=== PATIENT | male | born 1990 | race Caucasian/White ===

== ENCOUNTER 2017-06-14 14:32 | Emergency (ER) | payer MEDICAID ==
[~2017-06-14] VITALS: Ht 167.6 cm; Wt 81.8 kg
[2017-06-14] MEDS ORDERED: BUTATAB6 PO (14:51)
--- NOTE | 2017-06-14 16:46 | REP ---
Clinical: Trauma. Technique: AP, lateral, bilateral oblique and sunrise views right knee. Findings: The osseous structures and joint spaces are intact and normal. There is no evidence for acute fracture or dislocation. No joint effusion is appreciated. Surrounding soft tissues are unremarkable. No subcutaneous emphysema or radiodense foreign body. Impression: Normal examination. No acute fracture or dislocation. Signed by Moiz Zee MD 06/14/2017 04:37 P
[2017-06-14 17:30] VITALS: BP 115/65
[2017-08-13] MEDS ORDERED: NO MEDICATIONS (08:32)
== END 2017-06-14 17:32 | disposition home or self-care (01) ==
LOC: M ED 14:32
DX: M23.91 Unspecified internal derangement of right knee (principal); Z86.69 Personal history of other diseases of the nervous system and sense organs

== ENCOUNTER 2017-06-30 17:40 | Emergency (ER) | payer MEDICAID, OTHER, SELFPAY ==
[~2017-06-30] VITALS: Ht 167.6 cm; Wt 81.8 kg
[~2017-06-30 17:40] MED LIST: BUTATAB6 PO
[2017-06-30 20:31] LABS: BASO % 0.5 % (0.0-1.0); EOS % 0.5 % (0.0-3.0); IMMATURE GRANULOCYTE % 0.4 % (0-0); LYMPH # 1.6 10^3/uL (1.5-6.5); LYMPH % 19.4 % (24.0-44.0); MEAN CORPUSCULAR HGB CONC 35.5 g/dl (32.0-36.5); MEAN CORPUSCULAR VOLUME 87.5 fl (80.0-96.0); MONO # 0.5 10^3/uL (0.0-0.8); MONO % 5.7 % (0.0-5.0); NEUTROPHILS # 6.1 10^3/uL (1.8-7.7); NEUTROPHILS % 73.5 % (36.0-66.0); PLATELET COUNT, AUTOMATED 183 10^3/uL (150-450); RED CELL DISTRIBUTION WIDTH 12.2 % (11.5-14.5); WHITE BLOOD COUNT 8.3 10^3/uL (4.0-10.0)
[2017-06-30 20:45] LABS: INR 1.06
[2017-06-30 20:51] LABS: ANION GAP 8 MEQ/L (8-16); BLOOD UREA NITROGEN 9 MG/DL (7-18); CALCIUM LEVEL 8.2 MG/DL (8.5-10.1); CARBON DIOXIDE LEVEL 26 MEQ/L (21-32); CHLORIDE LEVEL 107 MEQ/L (98-107); CREATININE FOR GFR 0.75 MG/DL (0.70-1.30); GLOMERULAR FILTRATION RATE > 60.0 (>60); GLUCOSE, FASTING 87 MG/DL (70-105); POTASSIUM SERUM 3.7 MEQ/L (3.5-5.1); SODIUM LEVEL 141 MEQ/L (136-145)
[2017-06-30 21:49] VITALS: BP 132/84
[2017-08-13] MEDS ORDERED: NO MEDICATIONS (08:32)
== END 2017-06-30 21:58 | disposition home or self-care (01) ==
LOC: M ED 17:40
DX: K92.2 Gastrointestinal hemorrhage, unspecified (principal)

== ENCOUNTER → 2017-07-17 | Outpatient (CLI) | payer OTHER ==
[~2017-07-17] MED LIST changes: +NO MEDICATIONS
--- NOTE | 2017-07-17 18:59 | REP ---
Clinical: Trauma. Technique: Frontal view of the chest with multiple views of the left hemithorax. Findings: Frontal view of the chest demonstrates no acute cardiopulmonary process. Multiple views of the left hemithorax demonstrates no obvious acute rib fracture or pathology. Impression: Normal left rib series Signed by Moiz Zee MD 07/17/2017 06:50 P
== END ==
LOC: M WUC 17:29
PROVIDERS: ATTEND Physician Assistant
DX: S20.219A Contusion of unspecified front wall of thorax, initial encounter (principal); X58.XXXA Exposure to other specified factors, initial encounter; Y92.9 Unspecified place or not applicable; Y93.9 Activity, unspecified

== ENCOUNTER 2017-08-21 06:57 | Day surgery (SDC) | payer OTHER ==
[~2017-08-21] VITALS: Ht 167.6 cm; Wt 77.0 kg
[2017-08-21] MEDS ORDERED: NS 1,000 ML IV SCH (07:45)
--- NOTE | 2017-08-21 08:30 | ROOR ---
Patient Name: Charli Renee Procedure Date: 08/21/2017 8:04 AM Date of : 1990 Age: 27 Room: [facility] Gender: Male Note Status: Finalized Procedure: Colonoscopy Indications: Rectal bleeding Providers: Shukri Moran Jr, MD Referring MD: LYNDON BRENNAN MD Requesting Provider: Medicines: Propofol per Anesthesia Complications: No immediate complications. Procedure: Pre-Anesthesia Assessment: - Prior to the procedure, a History and Physical was performed, and patient medications and allergies were reviewed. The patient is competent. The risks and benefits of the procedure and the sedation options and risks were discussed with the patient. All questions were answered and informed consent was obtained. Patient identification and proposed procedure were verified by the physician and the nurse in the pre-procedure area and in the procedure room. Mental Status Examination: alert and oriented. Airway Examination: normal oropharyngeal airway and neck mobility. Respiratory Examination: clear to auscultation. CV Examination: normal. ASA Grade Assessment: II - A patient with mild systemic disease. After reviewing the risks and benefits, the patient was deemed in satisfactory condition to undergo the procedure. The anesthesia plan was to use moderate sedation / analgesia (conscious sedation). Immediately prior to administration of medications, the patient was re-assessed for adequacy to receive sedatives. The heart rate, respiratory rate, oxygen saturations, blood pressure, adequacy of pulmonary ventilation, and response to care were monitored throughout the procedure. The physical status of the patient was re-assessed after the procedure. The Colonoscope was introduced through the anus and advanced to the cecum, identified by appendiceal orifice and ileocecal valve. The colonoscopy was performed without difficulty. The patient tolerated the procedure well. The quality of the bowel preparation was adequate and good. Findings: The recto-sigmoid colon, sigmoid colon, descending colon, transverse colon, ascending colon, cecum, appendiceal orifice, ileocecal valve and ileum appeared normal. An area of mildly congested mucosa was found in the rectum. This was biopsied with a cold jumbo forceps for histology. Impression: - The recto-sigmoid colon, sigmoid colon, descending colon, transverse colon, ascending colon, cecum, appendiceal orifice, ileocecal valve and terminal ileum are normal. - Congested mucosa in the rectum. Biopsied. Recommendation: - Discharge patient to home (ambulatory). - Repeat colonoscopy at age 50 for screening purposes. Shukri Moran MD Shukri Moran Jr, MD 08/21/2017 8:29:55 AM This report has been signed electronically. Number of Addenda: 0 Note Initiated On: 08/21/2017 8:04 AM Estimated Blood Loss: Estimated blood loss: none.
[2017-08-21] MEDS ORDERED: LIDOCAINE 2% INJ 100 MG/5 ML SDV (FOR ANES.) As Ordered ONE (08:32)
[2017-08-21] MEDS ORDERED: PROPOFOL 200 MG/20 ML VIAL As Ordered ONE (08:32)
[2017-08-21 08:50] VITALS: BP 127/75
== END 2017-08-21 08:51 | disposition home or self-care (01) ==
LOC: M OPP 06:57
PROVIDERS: ATTEND Surgery
DX: K62.5 Hemorrhage of anus and rectum (principal); K62.89 Other specified diseases of anus and rectum; Q85.00 Neurofibromatosis, unspecified

== ENCOUNTER 2017-09-04 17:38 | Emergency (ER) | payer OTHER ==
[~2017-09-04] VITALS: Ht 167.6 cm; Wt 76.4 kg
--- NOTE | 2017-09-04 21:40 | REPUSA ---
CT of the head Clinical history: Paresthesias. Technique: Multiple axial CT images were obtained through the head without administration of contrast . Findings: The ventricles and sulci are symmetric bilaterally. There is no evidence of acute hemorrhag e or infarct. There is no midline shift, mass effect, or extra-axial fluid collection. The osseous st ructures are unremarkable. The visualized paranasal sinuses and mastoid air cells are clear. Left lat eral superficial soft tissue swelling is noted. Impression: No acute intracranial hemorrhage or infarct. Superficial soft tissue swelling in the left lateral aspect.
[2017-09-04 22:54] VITALS: BP 134/79
== END 2017-09-04 22:56 | disposition home or self-care (01) ==
LOC: M ED 17:38
DX: R20.2 Paresthesia of skin (principal); Q85.00 Neurofibromatosis, unspecified

== ENCOUNTER → 2017-09-10 | Outpatient (REF) | payer OTHER | LOC: M LABNEURO 14:57 | PROVIDERS: ATTEND Psychiatry & Neurology Neurology | DX: Z13.1 Encounter for screening for diabetes mellitus (principal); Z13.29 Encounter for screening for other suspected endocrine disorder; D68.59 Other primary thrombophilia; G45.9 Transient cerebral ischemic attack, unspecified; Z13.6 Encounter for screening for cardiovascular disorders ==

== ENCOUNTER 2017-12-09 12:57 | Day surgery (SDC) | payer OTHER ==
[2017-12-09] MEDS ORDERED: LIDOCAINE VISCOUS 2% SOLN 15ML UDC As Ordered (13:42)
[2017-12-09] MEDS ORDERED: CETACAINE SPRAY 5GM As Ordered (13:42)
[2017-12-09] MEDS ORDERED: MIDAZOLAM INJ 2 MG/2 ML VIAL (J2250) As Ordered ×4 (13:47→14:09)
[2017-12-09] MEDS: LIDOCAINE VISCOUS 2% SOLN 15ML UDC PO (14:21)
[2017-12-09] MEDS: MIDAZOLAM INJ 2 MG/2 ML VIAL (J2250) IV ×3 (14:22→14:27)
== END 2017-12-09 15:18 | disposition home or self-care (01) ==
LOC: M OPP 15:18
DX: G45.9 Transient cerebral ischemic attack, unspecified (principal); E66.3 Overweight; Z68.29 Body mass index [BMI] 29.0-29.9, adult
CPT/HCPCS: J2250

== ENCOUNTER 2021-06-20 21:43 | Emergency (ER) | payer OTHER ==
[~2021-06-20] VITALS: Ht 167.6 cm; Wt 87.0 kg
[~2021-06-20 21:43] MED LIST changes: +BUTA-199 PO; -BUTATAB6 PO
[2021-06-20 22:42] LABS: BASO % 0.3 % (0.0-1.0); EOS % 0.4 % (0.0-3.0); HEMATOCRIT 45.3 % (42.0-52.0); HEMOGLOBIN 16.2 g/dl (13.5-17.5); LYMPH # 0.9 10^3/uL (1.5-5.0); LYMPH % 8.3 % (24.0-44.0); MEAN CORPUSCULAR HEMOGLOBIN 31.9 pg (27.0-33.0); MEAN CORPUSCULAR HGB CONC 35.8 g/dl (32.0-36.5); MEAN CORPUSCULAR VOLUME 89.2 fl (80.0-96.0); NEUTROPHILS % 81.6 % (36.0-66.0); PLATELET COUNT, AUTOMATED 148 10^3/uL (150-450); RED BLOOD COUNT 5.08 10^6/uL (4.30-6.10)
[2021-06-20 23:08] LABS: BLOOD UREA NITROGEN 12 MG/DL (7-18); CALCIUM LEVEL 8.5 MG/DL (8.5-10.1); CARBON DIOXIDE LEVEL 28 MEQ/L (21-32); CHLORIDE LEVEL 107 MEQ/L (98-107); CREATININE FOR GFR 0.68 MG/DL (0.70-1.30); GLOMERULAR FILTRATION RATE > 60.0 (>60); GLUCOSE, FASTING 95 MG/DL (70-100); POTASSIUM SERUM 4.4 MEQ/L (3.5-5.1); SODIUM LEVEL 139 MEQ/L (136-145)
[2021-06-20] MEDS ORDERED: ISOVUE-370 76% 100ML VIAL As Ordered ONE (23:09)
--- NOTE | 2021-06-21 00:18 | REPVR ---
PROCEDURE INFORMATION: Exam: CT Maxillofacial With Contrast Exam date and time: 06/20/2021 10:06 PM Age: 31 years old Clinical indication: Mass, lump, or swelling; Maxilla; Additional info: Left lower jaw swelling TECHNIQUE: Imaging protocol: Computed tomography images of the face with intravenous contrast. Radiation optimization: All CT scans at this facility use at least one of these dose optimization techniques: automated exposure control; mA and/or kV adjustment per patient size (includes targeted exams where dose is matched to clinical indication); or iterative reconstruction. Contrast material: ISO; Contrast volume: 75 ml; Contrast route: INTRAVENOUS (IV); COMPARISON: CT Head without contrast 09/04/2017 9:22 PM FINDINGS: Orbital cavity: Orbits are normal. Globes are unremarkable. Bones/joints: No acute fracture. Paranasal sinuses: Normal. No air-fluid levels. Soft tissues: Subcutaneous edema and slight skin thickening in the left submandibular neck. There is asymmetric soft tissue confluence along the left mandibular body suggesting inflammatory consolidation. There is slight low attenuation adjacent to these teeth within the soft tissue confluence and early abscess or phlegmon is not excluded. Vasculature: There is asymmetric increased vascularity to the region. Dental: There is caries with absence of the crown of teeth # 5 and 12. There is caries and some periodontal disease involving tooth # 31. There is absence of the crown of tooth # 17 and caries involving tooth # 18 with periodontal disease of teeth # 18 and 19. IMPRESSION: 1. Subcutaneous infiltration with skin thickening about the left mandible and submandibular neck with inflammatory confluence or consolidation along the body of the left mandibular body. There is scattered dental caries and periodontal disease involving teeth # 18 and 19 which is adjacent to the perimandibular confluence. There is question of slight low attenuation which may reflect early abscess or phlegmon within the soft tissue confluence adjacent to the mandible. 2. Otherwise negative CT maxillofacial. Electronically signed by: Ric Williamson On 06/21/2021 00:17:46 AM
[2021-06-21] MEDS ORDERED: AMPICILLIN SOD/SULBACTAM SOD 3 GM in D5W MINI-BAG PLUS 100 ML IV ONE (01:20)
[2021-06-21] MEDS ORDERED: dexameTHASONE 20MG/5ML VIAL (J1100 PER 1MG) IV ONE (01:20)
[2021-06-21] MEDS ORDERED: AUGM875T28 PO (01:55)
[2021-06-21 02:19] VITALS: BP 121/74
--- NOTE | 2021-06-21 11:20 | ED PDOC ---
Post-Departure Follow-Up ct max fac faxed to dr sy for fu Darryl Smith MD Jun 21, 2021 11:20
== END 2021-06-21 02:24 | disposition home or self-care (01) ==
LOC: M ED 21:43
DX: K02.9 Dental caries, unspecified (principal); R22.0 Localized swelling, mass and lump, head; Z87.891 Personal history of nicotine dependence
CPT/HCPCS: 70487; 80048; 85025; 87040; 96365; 96375; 99284; J1100; Q9967